=== PATIENT | male | born 1985 | race Caucasian/White ===

== ENCOUNTER → 2020-11-02 10:28 | Outpatient (CLI) | payer OTHER, SELFPAY ==
--- NOTE | 2020-11-02 10:36 | RAD_ITS ---
STUDY: X-RAY - ABDOMEN/PELVIS REASON FOR EXAM: Male, 34 years old. Abdominal pain TECHNIQUE: AP supine and upright views of the abdomen and pelvis. COMPARISON: None. FINDINGS: Normal visualized lung bases. There is an abundance of fecal material throughout the colon. There is no demonstrated free abdominal air. The visualized liver, spleen and kidneys are grossly normal in size and morphology. Evidence of prior mesh repair of a left inguinal hernia. Mild levoscoliosis. RAD/Abd Inc Decub and/or Erect IMPRESSION: Large amount of fecal material is seen in the colon. Mild levoscoliosis. Evidence of prior mesh repair of a left inguinal hernia. Electronically Signed: Allan Trujillo, at 12:41 EST , Service support ,
[2020-11-02 12:25] LABS: Absolute Lymphocyte Count 2.31 X10^3/uL (0.83-4.51); Absolute Neutrophil Count 4.9 X10^3/uL (2.0-7.7); Basophil# 0.05 X10^3/uL; Basophil% 0.6 % (0-1); Eosinophil# 0.15 X10^3/uL; Eosinophils% 1.8 % (0-5); Hematocrit 47.2 % (40-54); Hemoglobin 16.1 g/dL (13.0-16.5); Lymphocyte # 2.31 X10^3/ul (4.0); Lymphocyte % 28.3 % (19-41); Mean Corp Hgb Conc 34.1 g/dL (32-36); Mean Corpuscular Hgb 31.8 pg (27.0-32.0); Mean Corpuscular Volume 93.3 fL (80-94); Mean Platelet Vol. 13.2 fl (6.2-12.0); Monocyte% 8.6 % (0-10); NRBC Flagged by Analyzer 0 % (0-5); Neutrophil # 4.91 X10^3/uL (2.7-7.7); Neutrophil % 60.3 % (47-70); Platelet Count 214 K/mm3 (150-450); RBC Distribution Width CV 13.2 % (11.6-14.6); RBC Distribution Width SD 43.9 fl (35.1-43.9); Red Blood Count 5.06 M/mm3 (4.6-6.2); White Blood Count 8.2 K/mm3 (4.4-11.0)
[2020-11-02 12:38] LABS: ALB/GLOB Ratio 1.1 RATIO (0.9-2.4); AST(SGOT) 29 U/L (15-37); Alanine Aminotransfer ALT/SGPT 70 U/L (16-61); Albumin, Serum 4.1 g/dL (3.2-5.0); Alkaline Phosphatase 74 U/L (45-117); Anion Gap 4 (5-15); BUN 15 mg/dL (7-18); BUN/Creat Ratio 15.8 RATIO (10-20); Calcium,Total 9.2 mg/dL (8.5-10.1); Chloride 107 mmol/L (98-107); Creatinine, Serum 0.95 mg/dL (0.70-1.30); EST Glomerular Filtration Rate 97 mL/min (>60); Est Glom Filt Rate - Afr Amer 118 mL/min (>60); Globulin 3.6 g/dL (2.2-4.2); Glucose 98 mg/dL (74-106); Potassium 4.2 mmol/L (3.5-5.1); Protein, Total 7.7 g/dL (6.4-8.2); Sodium Level 140 mmol/L (136-145)
== END ==
PROVIDERS: PCP Family Medicine; Referring Provider Family Medicine; Visit Provider Family Medicine
DX: R10.9 Unspecified abdominal pain (principal)
CPT/HCPCS: 36415; 74019; 80053; 85025

== ENCOUNTER 2020-12-21 10:32 | Day surgery (SDC) | payer OTHER, SELFPAY ==
[2020-12-14 07:41] VITALS: BMI 28.8
--- NOTE | 2020-12-19 08:38 | EKG12_ITS ---
Test Reason : PRE OP Blood Pressure : / mmHG Vent. Rate : 085 BPM Atrial Rate : 085 BPM P-R Int : 132 ms QRS Dur : 092 ms QT Int : 358 ms P-R-T Axes : 036 061 010 degrees QTc Int : 426 ms Normal sinus rhythm Normal ECG Confirmed by HARSH HELLER, PARISH ([id number]), deputy editor in chief ZULEMA CESPEDES ([id number]) on 12/20/2020 8:57:18 AM Referred By: Parag Balderas Confirmed By:PARISH HOUSE MD
[2020-12-19 09:06] LABS: Hematocrit 47.3 % (40-54); Hemoglobin 15.6 g/dL (13.0-16.5); Mean Corpuscular Hgb 29.9 pg (27.0-32.0); Mean Corpuscular Volume 90.8 fL (80-94); Mean Platelet Vol. 12.5 fl (6.2-12.0); Platelet Count 191 K/mm3 (150-450); RBC Distribution Width SD 42.6 fl (35.1-43.9); Red Blood Count 5.21 M/mm3 (4.6-6.2)
[2020-12-19 09:30] LABS: Anion Gap 2 (5-15); BUN 13 mg/dL (7-18); BUN/Creat Ratio 13.7 RATIO (10-20); Calcium,Total 9.2 mg/dL (8.5-10.1); Chloride 111 mmol/L (98-107); Creatinine, Serum 0.95 mg/dL (0.70-1.30); EST Glomerular Filtration Rate 97 mL/min (>60); Est Glom Filt Rate - Afr Amer 117 mL/min (>60); Glucose 119 mg/dL (74-106); Potassium 3.7 mmol/L (3.5-5.1); Sodium Level 141 mmol/L (136-145)
[2020-12-21] VITALS (9 sets, daily range): BP systolic 128–137; BP diastolic 90–106; PULSE 82–106; RESP 14–18; TEMP 35.8–36.8; O2SAT 90–100; BMI 29.1
--- NOTE | 2020-12-21 | HERN_PTH ---
PATIENT: HENRY LAO LOC: [facility] [place] U#:[id number] AGE/SX: 35/M ROOM: RE12/21/[address]: Dr. Parag Balderas MD : 1985 BED: DIS: 12/21/2020 SPEC #: [id number] RECD: 12/21/20 14:34 STATUS: MICHAEL [place] #: [id number] ALICIA: 12/21/20 00:[address]: Parag Balderas DEPT: SURGICAL PATHOLOGY RECD BY: Terrell Jones ENTERED: 12/22/20 09:17 SP TYPE: Hernia OTHR DR: Dr. Luis Tiwari MD Tissues: HERNIA Procedures: Surgery Specimen Level II HEADER OPERATION: Ventral hernia incisional repair with mesh PRE-OP DIAGNOSIS: Ventral incisional hernia TISSUE SUBMITTED: Hernia sac and contents MICROSCOPIC DIAGNOSIS Hernia sac, herniorrhaphy: Fibrofatty tissue consistent with hernia sac and associated fat necrosis. AM:mehdi 12/25/2020 MICROSCOPIC DESCRIPTION Slides are reviewed. GROSS DESCRIPTION Received in fixative is one container labeled with the patient's name and designated hernia sac and contents. The specimen consists of a piece of soft tissue measuring 3.5 x 2.5 x 1 cm. Sections do not reveal any mass lesion. Slab Polisher sections are submitted in one cassette. / BRINA:mehdi 12/22/20 TC:5 CPT: 40605
--- NOTE | 2020-12-21 10:47 | PCM.HP.BLA ---
Problem List (1) Ventral incisional hernia without obstruction or gangrene Status: Acute History and Physical Date of Admission: 12/21/20 Intake Visit Reasons: Umbilical Hernia Retort Operator Required: No Is patient in pain?: No (umbilicus tenderness) Allergies No Known Allergies Allergy (Verified 12/14/20 07:42) Medications aspirin 325 mg tablet 325 mg PO DAILY PRN 11/22/20 [History Confirmed 11/22/20] ibuprofen 200 mg tablet 200 mg PO Q6H PRN 11/22/20 [History Confirmed 12/14/20] multivitamin 1 tab PO DAILY 11/22/20 [History Confirmed 12/14/20] polyethylene glycol 3350 17 gram/dose oral powder 17 g PO DAILY 12/14/20 [History Confirmed 12/14/20] PFSH Medical History Anxiety (Acute) Constipation (Acute) Umbilical hernia (Acute) Abdominal pain (Acute) Surgical History Hx of left inguinal hernia repair (Acute) Hx of right inguinal hernia repair (Acute) Family History Mother No problems noted. Social History (Updated 12/14/20 @ 08:[address] Parag Balderas MD) Smoking Status: Never smoker alcohol intake: never substance use type: does not use caffeine: Yes what type of physical activity do you participate in: none frequency: does not exercise HPI HPI HPI: HENRY LAO, is a 35 M who presents to the office today for discussion regarding a ventral incisional hernia repair at the umbilicus. The patient is recently seen by Dr. Wade Brown. He had performed a remote laparoscopic bilateral hernia repair. Currently the patient is complaining of some tenderness at the umbilical site. He was diagnosed as having a ventral incisional hernia per Dr. Brown. On further discussion with the patient however the patient is complaining of decreased ability to move his bowels constipation change of bowel habits bloating. He states that he was evaluated by his primary care physician Dr. Luis Hurst. On November 02, 2020 laboratory was obtained demonstrating a normal CBC with differential and normal complete metabolic profile. Plain films of the abdomen showed a large amount of fecal material in the colon. Evidence of prior mesh left inguinal hernia repair. The patient points to kind of the generalized low mid abdomen area. He does suggest that he feels like he had an episode of bowel blockage. He states that the laboratory and x-ray discounted the possibility of diverticulitis. He has no personal or family history of colon polyps or colon cancer. The change of bowel habit though has been acute. 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 [employer] HPI HPI HPI: HENRY LAO, is a 35 M who presents to the office today for ROS General General: Yes weight change; no appetite, fatigue, colon cancer, breast cancer or weakness HEENT HEENT: No difficulty swallowing, eye injury, eye surgery, swollen glands or hoarseness Endo Endocrine: No thyroid disease, diabetes mellitus, thyroid cancer, Hair loss, heat intolerance or cold intolerance Skin Skin: No rash or changing moles Musc Musculoskeletal: No back problems, arthritis, rheumatoid arthritis, gout or joint pain Cardio Cardiovascular: No murmur, pacemaker, heart disease, atrial fibrillation, high blood pressure, heart attack, heart stent, palpitations, shortness of breat with exertion or chest pain Psych Psychiatric: No depression, anxiety or hearing voices Resp Respiratory: No shortness of breath, No sleep apnea, No cough, No COPD, No asthma, No emphysema, No wheezing Gastro Gastrointestinal: Yes abdominal pain, No nausea or vomiting, No diarrhea, Yes constipation, No blood in stool, No acid reflux, No hemorrhoids, No ulcers, No gallbladder problem, No black,tarry stools Bryan Hematologic: No blood thinners, No blood disorders, No bleeding, No anemia, No blood clots Neuro Neurologic: No system reviewed and no additional complaints, except as docu, No as per HPI, No abnormal walking, No abnormal hearing, No abnormal movements, No abnormal speech, No behavioral changes, No burning sensations, No confusion, No seizure-like activity, No unsteadiness, No dizziness, No localized weakness, No frequent falls, No headache(s), No lack of coordination, No loss of vision, No memory loss, No numbness, No other visual disturbances, No radiating pain, No restless legs, No sensory deficit, No fainting, No tingling, No tremor(s), No weakness, No other Exam Const General: cooperative, healthy appearing, comfortable, no acute distress Nutritional Appearance: overweight Orientation: alert, awake HENWA Head: normal to inspection Resp Effort & Inspection: normal respiratory effort Auscultation: clear to auscultation bilaterally Cardio Rate: regular rate Rhythm: regular rhythm Heart Sounds: no murmurs GI Palpation: soft, no hepatosplenomegaly Auscultation: normal bowel sounds Other: Small incisional hernia at the umbilicus left slightly to the left. No erythema. Mild tenderness to deep palpation. Skin General: no rashes or lesions noted Neuro General: alert, awake Extrem General: no calf tenderness Psych Affect: normal affect Assessment & Plan Problems 1. Change in bowel habit R19.4 2. Ventral incisional hernia without obstruction or gangrene K43.2 Plan Abdominal pain mid abdomen and change of bowel habit. Small ventral incisional hernia at the umbilicus related to remote laparoscopic inguinal hernia repair. The ventral incisional hernia certainly is present but I do not believe that this would likely be causing any type of bowel obstruction. The patient did comment several times that he felt that he had an acute change of bowel habit and blockage of his bowels. I had a discussion with him that unfortunately laboratory and plain films cannot completely decipher primary colonic disease. I have offered him a colonoscopy with possible biopsy or polypectomy as indicated. I am not comfortable assuming that his abdominal pain and change of bowel habits is related to the small umbilical ventral incisional hernia. I have discussed ventral incisional herniorrhaphy. Plan a direct approach through the umbilicus likely with the addition of mesh. 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 Patient has had an opportunity to ask and have questions answered. He will consider his options and proceed as noted. We will help expedite his surgical care. I appreciate the opportunity of assisting with his surgical care Copy: Dr. Luis Balderas M.D., F.A.C.S. Coding Level of Care Code Off vis,est,level 3 Diagnoses Change in bowel habit R19.4 Ventral incisional hernia without obstruction or gangrene K43.2 I have re-examined the patient. There are no clinical changes since date of exam. Procedure Criteria Procedure Type: Elective COVID Risk Discussion: The surgeon/proceduralist and patient have discussed in detail the risk of exposure to and/or potential harm posed by the COVID-19 virus with having a surgery/procedure at this time versus the risk of delaying the surgery/procedure. It is not possible to know either the risk of delaying the surgery or procedure or chance of getting an infection with perfect accuracy, but a joint decision was made between the patient and the surgeon/proceduralist to proceed at this time with the scheduled surgery/procedure as indicated on the consent form.
[2020-12-21] MEDS: Lactated Ringers 1,000 ML 15 ML IV ×2 (11:06→14:22)
[2020-12-21] MEDS: Bupivacaine Mpf 0.5% 30 ML VIAL (12:30)
--- NOTE | 2020-12-21 12:36 | DCINST_ITS ---
Discharge Diet: Light diet - advance as tolerated - if you have questions about your diet instructions, please talk to you doctor. Discharge Activity: May Not Drive - for 3-5 days or while taking narcotic pain medicine. May shower in (days): 1 Lifting Restrictions: 10 pounds Call your doctor if your incision/area has: Continuous Slow Oozing, Sudden Increased Bleeding, Increased Pain/ Swelling, Increased Redness, Foul Smelling Discharge Call your doctor if you observe: Fever of 101 or Higher Suture Line Care: Avoid Pulling/Pushing, Avoid Pinching/Bending Additional Dressing/Incision Instructions:: Change or remove dressing in 4 days. Leave steri-strips in place for 1 week. Allergies/Adverse Reactions: Allergies No Known Allergies Allergy (Verified 12/18/20 10:32) Medications to take at Discharge ibuprofen 200 mg tablet 200 mg PO Q6H PRN 11/22/20 multivitamin 1 tab PO DAILY 11/22/20 polyethylene glycol 3350 17 gram/dose oral powder 17 g PO DAILY 12/14/20 Primary Care Physician: Robin Tiwari MD [Primary Care Provider] - Test Results: Test results from this visit will be discussed in further detail at your follow- up appointment, if applicable. Please Follow Up With: Parag Balderas MD - [phone] When: Call for appt. May be phone, virtual, or on-site
[2020-12-21] MEDS: Cefazolin 2 GM in 0.9% Normal Saline 100 ML IV (12:52)
--- NOTE | 2020-12-21 13:34 | OP.PCM_ITS ---
Problem List (1) Ventral incisional hernia without obstruction or gangrene Status: Acute Report of Operation Date of Procedure: 12/21/20 Pre-Operative Diagnosis: Symptomatic ventral incisional hernia at the umbilicus Post-Operative Diagnosis: Same Surgery/Procedure Performed:: Ventral incisional herniorrhaphy with 6.[address] mesh reference #[id number] Lot number [id number]. Expiry date 08/07/2022 Description of Surgical Findings:: And informed consent was obtained. 35-year-old gentleman was taken to the operating place upon the table underwent general endotracheal intubation est hesia. The arm sterilely prepped and draped. Ancef 2 g were given intravenously. A curvilinear incision was made in the inferior portion of the umbilicus. Sharp dissection carried down through the subcutaneous tissue. The incisional hernia related to a previous laparoscopic cholecystectomy was identified. The hernia sac was incised preperitoneal fatty tissue was extracted with the sac electrocautery was used to transect it. Specimen was submitted for analysis. The retrorectus space was then dissected free with electrocautery and sharp and blunt dissection. A 6.4 cm Ventralex mesh was inserted in the retrorectus space. The tails were secured with interrupted 0 Nurolon. The fascia was approximated transversely with interrupted 0 Nurolon with several sutures capturing the mesh for good approximation. The perifascial areas anesthetized with 0.5% Marcaine as was the subdermal tissues. Total 30 cc was used. The umbilical skin was fixed to the fascia with a interrupted suture of 4-0 Monocryl. The skin edges were approximated subdermal stitches of 4-0 Monocryl. Dermabond was applied followed by Telfa and cotton ball and OpSite dressing. Sponge and instrument and needle counts reported to surgically correct. Blood loss minimal. Specimen hernia sac contents. Drains none. Blood loss minimal. The patient was taken to recovery area in satisfactory edition without apparent complication Parag Balderas M.D., F.A.C.S. Type of Anesthesia:: General Anesthesiologist: David Feliciano
[2020-12-21] MEDS: HYDROcodone Bitartrate/Apap 5/325 Tablet PO (15:24)
== END 2020-12-21 16:51 | disposition home or self-care (01) ==
LOC: SDC 10:32 → AC 10:33
PROVIDERS: PCP Family Medicine; Referring Provider Surgery; Visit Provider Surgery
PROC: (CPT 49560; principal; 2020-12-21 12:30)
DX: K43.2 Incisional hernia without obstruction or gangrene (principal); Z20.828 Contact with and (suspected) exposure to other viral communicable diseases; R19.4 Change in bowel habit
CPT/HCPCS: 00832; 49560; 49568; 36415; 80048; 85027; 87426; 88302; 93005; C1781; C9803; J7120; J2405

== ENCOUNTER 2021-07-15 08:31 | Emergency (ER) | payer OTHER, SELFPAY ==
[2021-07-15 08:31] VITALS: BP 154/105; PULSE 92; RESP 16; TEMP 36.4; O2SAT 100; BMI 27.4
--- NOTE | 2021-07-15 08:52 | CT_ITS ---
STUDY: CT ABDOMEN AND PELVIS WITHOUT CONTRAST REASON FOR EXAM: Male, 35 years old. kidney stone RADIATION DOSAGE (If Supplied By Facility): CTDIvol = ( 8.00 ) mGy, DLP = ( 644.97 ) mGycm TECHNIQUE: Transaxial images were obtained from the dome of the diaphragm to the symphysis pubis without oral contrast, and without intravenous contrast. Sagittal and coronal images were reconstructed. Individualized dose optimization techniques were used for this CT. COMPARISON: None. FINDINGS: The visualized lung bases are unremarkable. The visualized portions of the heart are within normal limits. Normal liver. Normal gallbladder and extrahepatic biliary system. Normal spleen. Normal pancreas. Normal bilateral adrenal glands. Bilateral nonobstructing renal stones. No hydronephrosis, ureteral stone, or ureteral dilatation. Normal visualized stomach. Normal small intestine. Normal colon. The appendix is visualized and appears normal. Normal abdominal aorta. Normal inferior vena cava. Normal retroperitoneum. Normal urinary bladder. Normal abdominal wall. Normal osseous structures. CT/Abdomen/Pelvis without Cont IMPRESSION: Bilateral nonobstructing renal stones. Electronically Signed: Jorge Doherty MD at 10:15 EDT Tel , Service support ,
--- NOTE | 2021-07-15 08:52 | US_ITS ---
STUDY: SCROTUM ULTRASOUND REASON FOR EXAM: Male, 35 years old. left testicular pain TECHNIQUE: Ultrasound evaluation of the scrotum was performed with color Doppler and static mock-scale imaging. COMPARISON: None. FINDINGS: RIGHT TESTICLE INTRATESTICULAR: There is a normal size of the right testicle. The right testicle measures 4.3 x 2.9 x 2.6 cm. There is a homogenous echotexture. There is normal arterial and normal venous vascularity. There is no demonstrated right testicular mass or cyst. EXTRATESTICULAR: The epididymis is normal in size. The epididymis head measures 0.7 x 1.1 x 0.9 cm. There is normal vascularity of the epididymis. There is no demonstrated epididymal cystic structure. There is no demonstrated hydrocele. There is no demonstrated varicocele. There is no demonstrated extratesticular mass or cyst. LEFT TESTICLE INTRATESTICULAR: There is a normal size of the left testicle. The left testicle measures 4.2 x 2.8 x 2.1 cm. There is a homogenous echotexture. There is normal arterial and normal venous vascularity. There is no demonstrated left testicular mass or cyst. EXTRATESTICULAR: The epididymis is normal in size. The epididymis head measures 0.8 x 1.1 x 0.8 cm. There is normal vascularity of the epididymis. There is no demonstrated epididymal cystic structure. There is no demonstrated hydrocele. There are prominent extratesticular veins consistent with a varicocele. There is no demonstrated extratesticular mass or cyst. US/Testicular with Arterial Flow IMPRESSION: Normal bilateral testicles. Electronically Signed: Jorge Doherty MD at 10:27 EDT Tel , Service support ,
--- NOTE | 2021-07-15 08:53 | EX.ED.GUMALE ---
HPI History of Present Illness Chief Complaint: Abd Pain Informant: patient Narrative Narrative: 35-year-old male presents with 2 days of left testicular discomfort. He notes that if he is at rest it does not seem to bother him but if he moves a certain position or touches his testicle in a certain way it is a dull aching sensation. He has been noting some intermittent left flank discomfort as well. He notes his urine to be cloudy. No fevers. He has a history of ventral and bilateral inguinal hernia repair. He denies any rectal pain. No burning with urination or urinary frequency. No trauma. No drainage from the meatus. [facility] Medical History Abdominal pain Anxiety Black tarry stools Change in bowel habit Constipation Dark stools Seasonal allergies Umbilical hernia Ventral incisional hernia without obstruction or gangrene Allergy/AdvReac Type Severity Reaction Status Date / Time No Known Allergies Allergy Verified 07/15/21 08:33 Family History Mother No problems noted. Surgical History History of ventral hernia repair (12/21/20) Hx of left inguinal hernia repair (~2006) Hx of right inguinal hernia repair (~2001) Hx of wisdom tooth extraction Social History Smoking Status: Never smoker alcohol intake: never substance use type: does not use caffeine: Yes what type of physical activity do you participate in: none frequency: does not exercise ROS ROS ED Constitutional Constitutional ED: Denies chills or weight loss Eyes Eyes: Denies change in vision or diplopia ENT ENT ED: Denies ear pain, rhinorrhea or sore throat Cardiovascular Cardiovascular: Denies chest pain, orthopnea, palpitations or racing heartbeat Respiratory/Chest Respiratory/Chest: Denies cough, dyspnea or orthopnea Gastrointestinal Gastrointestinal: Denies abdominal pain, diarrhea, nausea or vomiting Genitourinary Genitourinary ED: Reports other Details: Left testicular pain ; Denies dysuria, hematuria or urinary frequency Musculoskeletal Musculoskeletal: Reports back pain; Denies arthralgias or myalgias Integumentary Denies abscess or rash Neurologic Neurologic: Denies headache(s) or weakness Psychiatric Psychiatric: Denies anxiety, depression, suicidal ideation or suicidal thoughts Endocrine Endocrinology: Denies polydipsia, polyphagia or polyuria Allergic/Immunologic Allergic/Immunologic ED: Denies mouth swelling, tongue swelling or urticaria EXAM Physical Exam Const Vital Signs: 07/15/21 08:31 Temperature 97.6 F L Temperature Source Temporal Pulse Rate 92 Respiratory Rate 16 Blood Pressure 154/105 H Blood Pressure Mean 121 Pulse Ox 100 Oxygen Delivery Method Room Air Positive well nourished and well developed General Appearance ED: well developed HEENT Reports normocephalic, head/scalp atraumatic and moist mucous membranes Eyes PERRL and EOMs intact bilaterally Neck no lymphadenopathy, supple and no JVD Resp normal respiratory effort and clear to auscultation bilaterally Cardio regular rate, regular rhythm and no murmurs GI normal to inspection, nondistended, normoactive bowel sounds and non-tender Palpation: soft Narrative: The testicles appear to have a normal lie. There is some mild discomfort with palpation of the epididymis and of the testicle. No palpable hernias. No erythema or swelling noted Back/Spine no CVA tenderness and normal ROM Extremity normal to inspection General Extremety ED: Negative for edema General Extremity: Negative for edema Neuro oriented x3 and CN's II-XII intact bilaterally Sensorium / Orientation: alert Motor Exam: strength 5/5 throughout Psych mental status grossly normal Mood & Affect: Negative for depressed or tearful Skin no rashes or lesions noted and no wounds MDM MDM MDM Narrative Medical decision making narrative: Urinalysis is normal. CT of the abdomen pelvis demonstrates bilateral nonobstructing renal stones. Testicular ultrasound was normal. At this point I do not see an obvious cause for the patient's discomfort. Would recommend home care and observation. Return if worsening or concerns Lab Data Attestation: I reviewed the patient's lab results. Labs: Laboratory Results - last 24 hr 07/15/21 08:48 Urine Color Yellow Urine Clarity Clear Urine pH 6.0 Ur Specific [place] 1.010 Urine Protein 15 H Urine Glucose (UA) Normal Urine Ketones Negative Urine Occult Blood Negative Urine Nitrite Negative Urine Bilirubin Negative Urine Urobilinogen Normal Ur Leukocyte Esterase Negative Urine RBC 0 SEEN Urine WBC 0 SEEN Ur Squamous Epith Cells 0 SEEN Urine Bacteria 0 SEEN Urine Mucus 0 SEEN Radiography Diagnostic Testing: Radiology Impression Abdomen/Pelvis CT 07/15/21 08:52 IMPRESSION: Bilateral nonobstructing renal stones. Electronically Signed: Jorge Doherty MD at 10:15 EDT Tel , Service support , Testicular Ultrasound 07/15/21 08:52 IMPRESSION: Normal bilateral testicles. Electronically Signed: Jorge Doherty MD at 10:27 EDT Tel , Service support , Discharge Plan Triage Chief Complaint: Abd Pain ED Provider: Romulo Navarrete Dx/Rx/DC Orders Clinical Impression: Left testicular pain, Acute left flank pain Instructions: ED Testicular Pain, Unclear Cause Primary Care Provider: Robin Tiwari Referrals: Robin Tiwari MD [Primary Care Provider] - 1 Week if not improving Disposition Disposition: Home, Self Care
[2021-07-15 08:59] LABS: Bacteria 0 SEEN /hpf (None Seen); Mucous, Urine 0 SEEN /hpf (<or=2+); Red Blood Cells-Urine 0 SEEN /hpf (0-5); Squamous Epithelial Cells - UA 0 SEEN /hpf (0-5); White Blood Cells 0 SEEN /hpf (0-5)
[2021-07-15 09:01] LABS: Color, Urine Yellow (Yellow); Glucose, Dipstick Normal (Normal); Ketone-Dipstick Negative (Negative); Leukocyte Esterase-Dipstick Negative /ul (Negative); Nitrite-Dipstick Negative (Negative); Occult Blood-Urine Negative /ul (Negative); Protein-Dipstick 15 mg/dl (Negative); Urine Bilirubin Dipstick Negative (Negative); Urine Clarity Clear (Clear); Urine Urobilinogen Normal (Normal)
[2021-07-15 10:51] VITALS: PULSE 69; RESP 16; O2SAT 99
== END 2021-07-15 10:52 | disposition home or self-care (01) ==
PROVIDERS: Emergency Provider Emergency Medicine; PCP Family Medicine
DX: N50.812 Left testicular pain (principal); R10.9 Unspecified abdominal pain
CPT/HCPCS: 74176; 76870; 81001; 93976; 99282

== ENCOUNTER 2021-07-20 06:17 | Day surgery (SDC) | payer OTHER, SELFPAY ==
[2021-06-14 05:47] VITALS: BMI 30.1
[2021-07-20] VITALS (7 sets, daily range): BP systolic 120–135; BP diastolic 71–91; PULSE 62–95; RESP 16; TEMP 36.2–36.5; O2SAT 97–98; BMI 28.6
--- NOTE | 2021-07-20 | IMM_PTH ---
PATIENT: HENRY LAO LOC: EN U#:[id number] AGE/SX: 35/M ROOM: RE07/20/[address]: Dr. Parag Balderas MD : 1985 BED: DIS: 07/20/2021 SPEC #: [id number] RECD: 07/20/21 11:33 STATUS: MICHAEL REQ #: [id number] ALICIA: 07/20/21 00:[address]: Parag Balderas DEPT: IMMUNOHISTOCHEMISTRY RECD BY: Elie Quintanilla ENTERED: 07/20/21 11:33 SP TYPE: IMMUNO OTHR DR: Dr. Luis Tiwari MD Tissues: Stomach, NOS Procedures: H Pylori (initial) PHYSICIAN & INSTITUTION [place] [id number] SPECIMEN INFORMATION: Tissue Source: B. Antrum biopsy Clinical Info: Black tarry stools, change in bowel habits Specimen Number:[id number] CPT code: 34457 METHODOLOGY: Deparaffinized sections of prefer/formalin-fixed tissue or PAP/DQ stained slides are incubated with monoclonal/polyclonal antibodies/oligonucleotide probes. Localization is made via biotin free immunoperoxidase method. Appropriate controls are performed and reacted as expected. Results on target cell population are indicated in the following table: RESULTS: ANTIBODY / CLONE RESULT Block B H Pylori (polyclonal) negative These tests were developed and their performance characteristics determined by [facility]. They may not have been cleared or approved by the U.[place]. Food and Drug Administration. The FDA has determined that such clearance or approval is not necessary. INTERPRETATION: B. Antrum biopsy: Negative for Helicobacter pylori organisms. SJ:mehdi 07/23/2021
--- NOTE | 2021-07-20 06:24 | PCM.HP.BLA ---
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 Is patient in pain?: No (not currently- lower abdominal pain on and off) Allergies No Known Allergies Allergy (Verified 06/14/21 08:03) Medications ibuprofen 200 mg tablet 200 mg PO Q6H PRN 11/22/20 [History Confirmed 06/14/21] multivitamin 1 tab PO DAILY 11/22/20 [History Confirmed 06/14/21] loratadine 10 mg capsule 10 mg PO DAILY 06/14/21 [History Confirmed 06/14/21] pseudoephed 30 mg-DM 10 mg-guaifen 100 mg-acetaminophen 250 mg capsule 2 cap PO ONCE 06/14/21 [History Confirmed 06/14/21] simethicone 62.5 mg oral strips 1 strip PO QD-BID PRN 06/14/21 [History Confirmed 06/14/21] PFSH Medical History Abdominal pain Anxiety Black tarry stools Change in bowel habit Constipation Dark stools Seasonal allergies Umbilical hernia Ventral incisional hernia without obstruction or gangrene Surgical History History of ventral hernia repair (12/21/20) Hx of left inguinal hernia repair (~2006) Hx of right inguinal hernia repair (~2001) Hx of wisdom tooth extraction Family History Mother No problems noted. Social History Smoking Status: Never smoker alcohol intake: never substance use type: does not use caffeine: Yes what type of physical activity do you participate in: none frequency: does not exercise HPI HPI HPI: HENRY LAO, is a 35 M who presents to the office today for surgical consultation regarding abdominal pain and change in bowel habits. On December 21, 2020 I performed a ventral incisional herniorrhaphy with a 6.4 cm Ventralex mesh. This simply related to a previous laparoscopic cholecystectomy. The mesh was placed into the retrorectus space. Preoperatively the patient had concerns regarding her change of bowel habits bloating and constipation. Plain abdominal films taken October 2020 demonstrated a large amount of fecal material in the colon. There is evidence of a prior left groin hernia repair. 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 I did discuss with him preoperatively pursuing a colonoscopy. At that time he preferred proceeding on with the ventral incisional herniorrhaphy. It was hoped that by repairing his ventral incisional hernia that some of his abdominal symptoms would improve and may have but he is still having inconsistent bowel movements. Sometimes 3 bowel movements a day sometimes none. It is of note that he also is describing some intermittent very dark stools. He does take ibuprofen up to 2 tablets/day. He has been on MiraLAX previously. That did not seem to completely settle his symptoms. He has recently been trying Gas-X with some improvement in his discomfort. He believes that his ventral incisional herniorrhaphy proceeded very well. He has absolutely no discomfort at that site ROS General General: No weight change, appetite, fatigue, colon cancer, breast cancer or weakness HEENT HEENT: No difficulty swallowing, eye injury, eye surgery, swollen glands or hoarseness Endo Endocrine: No thyroid disease, diabetes mellitus, thyroid cancer, Hair loss, heat intolerance or cold intolerance Skin Skin: No rash or changing moles Musc Musculoskeletal: No back problems, arthritis, rheumatoid arthritis, gout or joint pain Cardio Cardiovascular: No murmur, pacemaker, heart disease, atrial fibrillation, high blood pressure, heart attack, heart stent, palpitations, shortness of breat with exertion or chest pain Psych Psychiatric: No depression, anxiety or hearing voices Resp Respiratory: No shortness of breath, No sleep apnea, No cough, No COPD, No asthma, No emphysema and No wheezing Gastro Gastrointestinal: Yes abdominal pain, No nausea or vomiting, Yes diarrhea, Yes constipation, No blood in stool, No acid reflux, No hemorrhoids, No ulcers, No gallbladder problem and Yes black,tarry stools Bryan Hematologic: No blood thinners, No blood disorders, No bleeding, No anemia and No blood clots Neuro Neurologic: No weakness Exam Const General: cooperative, healthy appearing, comfortable and no acute distress Nutritional Appearance: overweight Orientation: alert and awake [facility] Head: normal to inspection Eyes General: appearance normal, both eyes and all related structures Neck Neck: normal visual inspection Resp Effort & Inspection: normal respiratory effort Auscultation: clear to auscultation bilaterally Cardio Rate: regular rate Rhythm: regular rhythm GI Palpation: soft and no hepatosplenomegaly Auscultation: normal bowel sounds Other: Very nicely healed curvilinear incision at the inferior portion of the umbilicus. Repair is solid and intact Musc Cervical Spine: normal cervical lordosis Skin General: no rashes or lesions noted Neuro Cognition: normal cognition Extrem General: no calf tenderness Psych Appearance: grossly normal COVID (Procedure Consent) Procedure Criteria Procedure Criteria: Yes Elective The surgeon/proceduralist and patient have discussed in detail the risk of exposure to and/or potential harm posed by the COVID-19 virus with having a surgery/procedure at this time versus the risk of delaying the surgery/procedure. It is not possible to know either the risk of delaying the surgery or procedure or chance of getting an infection with perfect accuracy, but a joint decision was made between the patient and the surgeon/proceduralist to proceed at this time with the scheduled surgery/procedure as indicated on the consent form. Assessment and Plan Assessment and Plan (1) Black tarry stools: Status: Acute (2) Change in bowel habit: Status: Acute Plan - Dr. Parag Balderas MD: Patient has done well with his ventral incisional herniorrhaphy at the umbilicus. He still is having evaluate complexity of abdominal complaints including generalized abdominal pain and intermittent dark-colored stools and inconsistent bowel movements frequently very loose and multiple per day. I propose for him a esophagogastroduodenoscopy possible biopsy colonoscopy possible biopsy or polypectomy as indicated. Careful evaluation for determination of abdominal pain will be pursued and biopsies will be taken appropriate. Inspection for possible source of diarrhea as well. He has had an opportunity ask no questions answered. We will schedule procedure at his discretion. Copy: Dr. Luis Balderas M.D., F.A.C.S. The patient has had an ER visit on July 15 with complaint of left flank pain and left testicle pain. No definitive etiology was identified by the emergency room staff. Parag Balderas M.D., F.A.C.S.
[2021-07-20] MEDS: Lactated Ringers 1,000 ML 100 ML IV (06:46)
--- NOTE | 2021-07-20 07:30 | EGD_PTH ---
PATIENT: HENRY LAO LOC: EN U#:[id number] AGE/SX: 35/M ROOM: RE07/20/[address]: Dr. Parag Balderas MD : 1985 BED: DIS: 07/20/2021 SPEC #: [id number] RECD: 07/20/21 10:59 STATUS: MICHAEL REThiago #: [id number] ALICIA: 07/20/21 07:[address]: Parag Balderas DEPT: SURGICAL PATHOLOGY RECD BY: Cari Quinn ENTERED: 07/20/21 11:29 SP TYPE: EGD BIOPSY OT DR: Dr. Luis Tiwari MD Tissues: A - Duodenum, NOS B - Gastric mucous membrane C - Esophagus, NOS D - COLON BIOPSY Procedures: Surgery Specimen Level IV HEADER OPERATION: Colonoscopy, EGD ([facility] [place]) PRE-OP DIAGNOSIS: Black tarry stools, change in bowel habits TISSUE SUBMITTED: A. Duodenum biopsy, B. Antrum biopsy for histo and H. pylori, C. Distal esophagus, D. Random colonic biopsies MICROSCOPIC DIAGNOSIS A. Duodenum, biopsy: A fragment of duodenal mucosa with Ann gland hyperplasia. B. Antrum, biopsy: Mild gastritis. See microscopic description and comment. C. Distal esophagus, biopsy: Fragments of squamous mucosa with mild chronic inflammation. D. Colon, random biopsy: Fragments of colonic mucosa, no pathologic diagnosis. SJ:mehdi 07/23/2021 COMMENT B. The results of immunohistochemistry for Helicobacter pylori will be reported separately ([id number]). MICROSCOPIC DESCRIPTION Slides are reviewed. B. The specimen shows fragments of gastric mucosa with chronic inflammatory cell infiltrates in the lamina propria consisting of lymphocytes and plasma cells, consistent with mild chronic gastritis. GROSS DESCRIPTION A - Received in fixative is one container labeled with the patient's name and designated duodenum biopsy. The specimen consists of one irregular fragment of light jacobson soft tissue that measures 0.3 x 0.2 x 0.1 cm. The specimen is totally submitted in one cassette. B - Received in fixative is one container labeled with the patient's name and designated antrum biopsy. The specimen consists of one irregular fragment of light jacobson soft tissue that measures 0.3 x 0.2 x 0.1 cm. The specimen is totally submitted in one cassette. C - Received in fixative is one container labeled with the patient's name and designated distal esophagus biopsy. The specimen consists of multiple irregular fragments of light jacobson soft tissue that in aggregate measure 0.5 x 0.5 x <0.1 cm. The specimen is totally submitted in one cassette. D - Received in fixative is one container labeled with the patient's name and designated random colon biopsy. The specimen consists of multiple irregular fragments of light jacobson soft tissue that in aggregate measure 1 x 1 x 0.2 cm. The specimen is totally submitted in one cassette. / AM:mehdi 07/20/21 TC:3 CPT: 77369 x4
--- NOTE | 2021-07-20 08:03 | OP.CCLET_ITS ---
07/20/2021 Robin Tiwari [address] [place] [address] Re : Upper GI endoscopy procedure for Jonathan Head Dear Dr. Tiawri This procedure was performed on Tuesday, July 20, 2021. My impressions and recommendations are as follows: Impressions : - Small hiatal hernia. - Z-line variable, 40 cm from the incisors. Biopsied. - Erythematous mucosa in the antrum. Biopsied. - Normal examined duodenum. Biopsied. Recommendations : - Discharge patient to home. - Resume previous diet. - Continue present medications. - Telephone my office for pathology results in 1 week. Findings do not correlate with significant abdominal pain. My findings are described in the full procedure note, which is enclosed. If I can be of further assistance, please feel free to contact me at Doctor phone number(s): Work: . Sincerely, Parag Balderas MD 07/20/2021 8:02:22 AM This report has been signed electronically.
--- NOTE | 2021-07-20 08:03 | OP.EGD_ITS ---
Patient Name: Jonathan Ingram Procedure Date: 07/20/2021 7:31 AM Date of : 1985 Age: 35 Procedure: Upper GI endoscopy Indications: Abdominal pain in the left upper quadrant Providers: Parag Balderas MD Referring MD: Robin Tiwari Medicines: See the Anesthesia note for documentation of the administered medications Complications: No immediate complications. Procedure: Pre-Anesthesia Assessment: - Prior to the procedure, a History and Physical was performed, and patient medications and allergies were reviewed. The patient's tolerance of previous anesthesia was also reviewed. The risks and benefits of the procedure and the sedation options and risks were discussed with the patient. All questions were answered, and informed consent was obtained. Prior Anticoagulants: The patient has taken no previous anticoagulant or antiplatelet agents. ASA Grade Assessment: II - A patient with mild systemic disease. After reviewing the risks and benefits, the patient was deemed in satisfactory condition to undergo the procedure. After obtaining informed consent, the endoscope was passed under direct vision. Throughout the procedure, the patient's blood pressure, pulse, and oxygen saturations were monitored continuously. The gastroscope was introduced through the mouth, and advanced to the second part of duodenum. The upper GI endoscopy was accomplished without difficulty. The patient tolerated the procedure well. Scope In: 7:38:09 AM Scope Out: 7:42:58 AM Total Procedure Duration Time 0 hours 4 minutes 49 seconds Findings: A small hiatal hernia was present. The Z-line was variable and was found 40 cm from the incisors. Biopsies were taken with a cold forceps for histology. Diffuse mildly erythematous mucosa without bleeding was found in the gastric antrum. Biopsies were taken with a cold forceps for histology. The examined duodenum was normal. Biopsies were taken with a cold forceps for histology. Impression: - Small hiatal hernia. - Z-line variable, 40 cm from the incisors. Biopsied. - Erythematous mucosa in the antrum. Biopsied. - Normal examined duodenum. Biopsied. Recommendation: - Discharge patient to home. - Resume previous diet. - Continue present medications. - Telephone my office for pathology results in 1 week. Findings do not correlate with significant abdominal pain. Procedure Code(s): --- Professional --- 08869, Esophagogastroduodenoscopy, flexible, transoral; with biopsy, single or multiple Diagnosis Code(s): --- Professional --- K44.9, Diaphragmatic hernia without obstruction or gangrene K22.8, Other specified diseases of esophagus K31.89, Other diseases of stomach and duodenum R10.12, Left upper quadrant pain CPT copyright 2017 [employer]. All rights reserved. The codes documented in this report are preliminary and upon demonstrator sales review may be revised to meet current compliance requirements. Parag Balderas MD 07/20/2021 8:02:22 AM This report has been signed electronically. Number of Addenda: 0 Note Initiated On: 07/20/2021 7:31 AM
--- NOTE | 2021-07-20 08:06 | OP.COLON_ITS ---
Patient Name: Jonathan Ingram Procedure Date: 07/20/2021 7:43 AM Date of : 1985 Age: 35 Procedure: Colonoscopy Indications: Abdominal pain in the left upper quadrant Providers: Parag Balderas MD Referring MD: Robin Tiwari Medicines: See the Anesthesia note for documentation of the administered medications Patient Profile: Last Colonoscopy: none. The patient's first colonoscopy is today. Complications: No immediate complications. Procedure: Pre-Anesthesia Assessment: - Prior to the procedure, a History and Physical was performed, and patient medications and allergies were reviewed. The patient's tolerance of previous anesthesia was also reviewed. The risks and benefits of the procedure and the sedation options and risks were discussed with the patient. All questions were answered, and informed consent was obtained. Prior Anticoagulants: The patient has taken no previous anticoagulant or antiplatelet agents. ASA Grade Assessment: II - A patient with mild systemic disease. After reviewing the risks and benefits, the patient was deemed in satisfactory condition to undergo the procedure. After I obtained informed consent, the scope was passed under direct vision. Throughout the procedure, the patient's blood pressure, pulse, and oxygen saturations were monitored continuously. The adult colonoscope was introduced through the anus and advanced to the cecum, identified by appendiceal orifice and ileocecal valve. The colonoscopy was performed without difficulty. The patient tolerated the procedure well. The quality of the bowel preparation was good. The ileocecal valve and the appendiceal orifice were photographed. Scope In: 7:46:12 AM Scope Withdrawal Time 0 hours 7 minutes 30 seconds Scope Out: 7:57:43 AM Total Procedure Duration Time 0 hours 11 minutes 31 seconds Findings: Hemorrhoids were found on perianal exam. slightly enlarged. No mass Scattered diverticula were found in the sigmoid colon. Biopsies for histology were taken with a cold forceps from the entire colon for evaluation of microscopic colitis. The exam was otherwise without abnormality. Impression: - Hemorrhoids found on perianal exam. - Diverticulosis in the sigmoid colon. - The examination was otherwise normal. - Biopsies were taken with a cold forceps from the entire colon for evaluation of microscopic colitis. Recommendation: - Discharge patient to home. - Resume previous diet. - Continue present medications. - Repeat colonoscopy at age 52. - Telephone my office for pathology results in 1 week. Procedure Code(s): --- Professional --- 32973, Colonoscopy, flexible; with biopsy, single or multiple Diagnosis Code(s): --- Professional --- K64.9, Unspecified hemorrhoids R10.12, Left upper quadrant pain K57.30, Diverticulosis of large intestine without perforation or abscess without bleeding CPT copyright 2017 [employer]. All rights reserved. The codes documented in this report are preliminary and upon blockers skiver review may be revised to meet current compliance requirements. Parag Balderas MD 07/20/2021 8:06:13 AM This report has been signed electronically. Number of Addenda: 0 Note Initiated On: 07/20/2021 7:43 AM
--- NOTE | 2021-07-20 08:07 | OP.CCLET_ITS ---
07/20/2021 Robin Tiwari [address] [place] [address] Re : Colonoscopy procedure for Jonathan Head Dear Dr. Tiwari This procedure was performed on Tuesday, July 20, 2021. My impressions and recommendations are as follows: Impressions : - Hemorrhoids found on perianal exam. - Diverticulosis in the sigmoid colon. - The examination was otherwise normal. - Biopsies were taken with a cold forceps from the entire colon for evaluation of microscopic colitis. Recommendations : - Discharge patient to home. - Resume previous diet. - Continue present medications. - Repeat colonoscopy at age 52. - Telephone my office for pathology results in 1 week. My findings are described in the full procedure note, which is enclosed. If I can be of further assistance, please feel free to contact me at Doctor phone number(s): Work: . Sincerely, Parag Balderas MD 07/20/2021 8:06:13 AM This report has been signed electronically.
== END 2021-07-20 08:40 | disposition home or self-care (01) ==
LOC: EN 06:17 → AC 06:18
PROVIDERS: PCP Family Medicine; Referring Provider Family Medicine; Visit Provider Surgery
PROC: 0DJD8ZZ Inspection of Lower Intestinal Tract, Via Natural or Artificial Opening Endoscopic (ICD-10-PCS; CPT 45378; principal; 2021-07-20 07:25)
DX: K57.30 Diverticulosis of large intestine without perforation or abscess without bleeding (principal); K52.9 Noninfective gastroenteritis and colitis, unspecified; K64.9 Unspecified hemorrhoids; K44.9 Diaphragmatic hernia without obstruction or gangrene; K29.70 Gastritis, unspecified, without bleeding; K31.89 Other diseases of stomach and duodenum; F41.9 Anxiety disorder, unspecified; Z79.899 Other long term (current) drug therapy
CPT/HCPCS: 43239; 45380; 87426; 88305; 88342; C9803; J7120

== ENCOUNTER 2021-10-05 04:32 | Emergency (ER) | payer OTHER, SELFPAY ==
[2021-10-05 04:34] VITALS: BP 173/100; PULSE 89; RESP 18; TEMP 36.6; O2SAT 100; BMI 28.8
--- NOTE | 2021-10-05 04:44 | CT_ITS ---
STUDY: CT ABDOMEN AND PELVIS WITHOUT CONTRAST REASON FOR EXAM: Male, 35 years old. Flank pain RADIATION DOSAGE (If Supplied By Facility): CTDIvol = ( 8.43 ) mGy, DLP = ( 488.66 ) mGycm TECHNIQUE: Transaxial images were obtained from the dome of the diaphragm to the symphysis pubis without oral contrast, and without intravenous contrast. Sagittal and coronal images were reconstructed. Individualized dose optimization techniques were used for this CT. COMPARISON: None. FINDINGS: The visualized lung bases are unremarkable. The visualized portions of the heart are within normal limits. Normal liver. Normal gallbladder and extrahepatic biliary system. Normal spleen. Normal pancreas. Normal bilateral adrenal glands. Bilateral kidney stones, the largest measures 4 mm is in the left kidney at the UPJ with resultant moderate left hydronephrosis. Normal visualized stomach. Normal small intestine. Normal colon. The appendix is visualized and appears normal. Normal abdominal aorta. Normal inferior vena cava. Normal retroperitoneum. Normal urinary bladder. Normal abdominal wall. Normal osseous structures. CT/Abdomen/Pelvis without Cont IMPRESSION: Bilateral kidney stones, the largest measures 4 mm is in the left kidney at the UPJ with resultant moderate left hydronephrosis. Electronically Signed: Del Maldonado MD at 6:20 EST Tel , Service support ,
--- NOTE | 2021-10-05 04:50 | EX.ED.DYSGE1 ---
HPI History of Present Illness Chief Complaint: Flank Pain Informant: patient Onset/Context/Timing Onset: Today and Hours (2-3) Context: Sudden Onset Timing: Waxes and wanes Quality: Sharp Location: Left flank Current Severity: Severe Maximum Severity: Severe Worsened by: Nothing Relieved by: Heating pad Narrative Narrative: Patient presents with left flank pain that began today. Patient states the pain woke him up approximately 2 to 3 hours prior to arrival. Patient states the pain is sharp. Patient states pain is similar to prior kidney stones. Patient states the pain waxes and wanes. Patient states that heating pad seem to help with his pain. Patient denies any dysuria or hematuria. Patient admits to some nausea but denies any vomiting. Patient denies any fevers or chills. PFSH PFSH Medical History Abdominal pain Anxiety Black tarry stools Change in bowel habit Constipation Dark stools Kidney stone Non-smoker Seasonal allergies Umbilical hernia Ventral incisional hernia without obstruction or gangrene Home Medications acetaminophen 325 mg PO Q4H PRN 07/18/21 [History Last Taken Unknown] multivitamin 1 tab PO DAILY 07/18/21 [History Last Taken Unknown] oxycodone-acetaminophen 1 tab PO Q6H PRN PRN 3 Days #12 tablet 10/05/21 [Rx Last Taken Unknown] Allergy/AdvReac Type Severity Reaction Status Date / Time No Known Allergies Allergy Verified 10/05/21 04:43 Family History Mother No problems noted. Surgical History History of ventral hernia repair (12/21/20) Hx of left inguinal hernia repair (~2006) Hx of right inguinal hernia repair (~2001) Hx of wisdom tooth extraction Social History Smoking Status: Never smoker alcohol intake: never substance use type: does not use caffeine: Yes what type of physical activity do you participate in: none frequency: does not exercise ROS ROS ED Constitutional Constitutional ED: Denies chills or fever(s) Eyes Eyes: Denies blurry vision or change in vision ENT ENT ED: Denies rhinorrhea or sore throat Cardiovascular Cardiovascular: Denies chest pain or palpitations Respiratory/Chest Respiratory/Chest: Denies cough or dyspnea Gastrointestinal Gastrointestinal: Reports nausea; Denies vomiting Genitourinary Genitourinary ED: Denies dysuria or hematuria Musculoskeletal Musculoskeletal: Reports back pain; Denies neck pain Integumentary Denies abscess or rash Neurologic Neurologic: Denies headache(s) or weakness Allergic/Immunologic Allergic/Immunologic ED: Denies mouth swelling or urticaria EXAM Physical Exam Const Vital Signs: 10/05/21 04:34 Temperature 97.9 F Temperature Source Temporal Pulse Rate 89 Respiratory Rate 18 Blood Pressure 173/100 H Blood Pressure Mean 124 Pulse Ox 100 Oxygen Delivery Method Room Air Positive well nourished and well developed General Appearance ED: well developed HEENT Reports moist mucous membranes Neck supple and no JVD Resp normal respiratory effort and clear to auscultation bilaterally Cardio regular rate, regular rhythm and no murmurs GI normal to inspection, nondistended, normoactive bowel sounds and non-tender Palpation: soft Back/Spine General Back: CVA tenderness left Extremity normal to inspection General Extremety ED: Negative for edema or tenderness General Extremity: Negative for edema Neuro oriented x3, CN's II-XII intact bilaterally and no sensory deficits noted Sensorium / Orientation: alert Motor Exam: strength 5/5 throughout Psych mental status grossly normal Skin no rashes or lesions noted MDM MDM MDM Narrative Medical decision making narrative: Patient was given IV fluids and morphine. CBC shows a mild leukocytosis of 13.2. Comprehensive metabolic profile was essentially within normal limits. CT scan of the abdomen and pelvis was obtained. There is a 4 mm calculus at the left proximal ureter near the UPJ. There is moderate hydronephrosis. There is no other acute abnormality. This was interpreted by the radiologist and reviewed by myself. Urinalysis does not show any evidence of urinary tract infection. There are 50-100 red blood cells and occult blood of 250. Patient was advised of his findings. Patient was given a prescription for Percocet. Patient was instructed to follow-up with his primary care physician in 3 to 5 days. Patient was also given referral for urology. Patient understood and was agreeable with the plan. All questions were answered. Lab Data Attestation: I reviewed the patient's lab results. Labs: Laboratory Results - last 24 hr 10/05/21 10/05/2121 04:45 04:45 06:16 WBC 13.2 H RBC 5.01 Hgb 15.1 Hct 44.6 MCV 89.0 MCH 30.1 MCHC 33.9 RDW Std Deviation 42.8 RDW Coeff of Damien 13.2 Plt Count 231 MPV 12.5 H Immature Gran % (Auto) 0.300 Neut % (Auto) 62.4 Lymph % (Auto) 26.1 Pettis % (Auto) 9.1 Eos % (Auto) 1.6 Baso % (Auto) 0.5 Absolute Neuts (auto) 8.2 H Absolute Lymphs (auto) 3.44 Nucleated RBC % 0 Sodium 140 Potassium 3.8 Chloride 107 Carbon Dioxide 27.0 Anion Gap 6 BUN 18 Creatinine 1.07 Estim Creat Clear Calc 95.00 Est GFR (MDRD) Af Amer 102 Est GFR (MDRD) Non-Af 84 BUN/Creatinine Ratio 16.8 Glucose 177 H Calcium 9.2 Total Bilirubin 0.50 AST 20 ALT 42 Alkaline Phosphatase 70 Total Protein 7.5 Albumin 3.9 Globulin 3.6 Albumin/Globulin Ratio 1.1 Urine Color Yellow Urine Clarity Sl. Cloudy Urine pH 7.0 Ur Specific [place] 1.010 Urine Protein 30 H Urine Glucose (UA) Normal Urine Ketones Negative Urine Occult Blood 250 H Urine Nitrite Negative Urine Bilirubin Negative Urine Urobilinogen Normal Ur Leukocyte Esterase Negative Urine RBC 50-100 SEEN Urine WBC 0 SEEN Ur Squamous Epith Cells 0 SEEN Urine Bacteria RARE Urine Mucus RARE Radiography Diagnostic Testing: Clinical Impression(s) from Imaging Studies Abdomen/Pelvis CT 10/05/21 04:44 IMPRESSION: Bilateral kidney stones, the largest measures 4 mm is in the left kidney at the UPJ with resultant moderate left hydronephrosis. Electronically Signed: Del Maldonado MD at 6:20 EST Tel , Service support , Discharge Plan Triage Chief Complaint: Flank Pain ED Provider: Thomas Bautista Dx/Rx/DC Orders Clinical Impression: Calculus of proximal left ureter Instructions: ED Kidney Stone w/ Colic Prescriptions: New oxycodone-acetaminophen [oxycodone-acetaminophen] 1 TABLET tablet 1 tab PO Q6H PRN PRN (Reason: Pain) 3 Days Qty: 12 RF: 0 No Action multivitamin Tablet 1 tab PO DAILY RF: 0 acetaminophen 160 mg Tablet 325 mg PO Q4H PRN (Reason: Pain) RF: 0 Primary Care Provider: Robin Tiwari Referrals: Robin Tiwari MD [Primary Care Provider] - 3-5 Days Jagdish Ward MD [STAFF PHYSICIAN] - 3-5 Days Disposition Disposition: Home, Self Care
[2021-10-05 04:51] LABS: Absolute Lymphocyte Count 3.44 X10^3/uL (0.83-4.51); Absolute Neutrophil Count 8.2 X10^3/uL (2.0-7.7); Basophil# 0.06 X10^3/uL; Basophil% 0.5 % (0-1); Eosinophil# 0.21 X10^3/uL; Eosinophils% 1.6 % (0-5); Hematocrit 44.6 % (40-54); Hemoglobin 15.1 g/dL (13.0-16.5); Lymphocyte # 3.44 X10^3/ul (0.83-4.51); Lymphocyte % 26.1 % (19-41); Mean Corp Hgb Conc 33.9 g/dL (32-36); Mean Corpuscular Hgb 30.1 pg (27.0-32.0); Mean Platelet Vol. 12.5 fl (6.2-12.0); Monocyte% 9.1 % (0-10); NRBC Flagged by Analyzer 0 % (0-5); Neutrophil # 8.23 X10^3/uL (2.7-7.7); Neutrophil % 62.4 % (47-70); Platelet Count 231 K/mm3 (150-450); RBC Distribution Width CV 13.2 % (11.6-14.6); RBC Distribution Width SD 42.8 fl (35.1-43.9); Red Blood Count 5.01 M/mm3 (4.6-6.2); White Blood Count 13.2 K/mm3 (4.4-11.0)
[2021-10-05] MEDS: Ondansetron 4 MG/2 ML Vial IV (04:54)
[2021-10-05] MEDS: 0.9% Normal Saline 1,000 ML 1000 ML IV (04:54)
[2021-10-05] MEDS: Morphine 4 MG/ML Syringe IV (04:54)
[2021-10-05 05:15] LABS: ALB/GLOB Ratio 1.1 RATIO (0.9-2.4); AST(SGOT) 20 U/L (15-37); Alanine Aminotransfer ALT/SGPT 42 U/L (16-61); Albumin, Serum 3.9 g/dL (3.2-5.0); Alkaline Phosphatase 70 U/L (45-117); Anion Gap 6 (5-15); BUN 18 mg/dL (7-18); BUN/Creat Ratio 16.8 RATIO (10-20); Calcium,Total 9.2 mg/dL (8.5-10.1); Chloride 107 mmol/L (98-107); Creatinine, Serum 1.07 mg/dL (0.70-1.30); EST Glomerular Filtration Rate 84 mL/min (>60); Est Glom Filt Rate - Afr Amer 102 mL/min (>60); Globulin 3.6 g/dL (2.2-4.2); Glucose 177 mg/dL (74-106); Potassium 3.8 mmol/L (3.5-5.1); Protein, Total 7.5 g/dL (6.4-8.2); Sodium Level 140 mmol/L (136-145)
[2021-10-05] MEDS: HYDROmorphone 1 MG/ML Syringe 0.5 MG IV (05:39)
[2021-10-05 06:22] LABS: Squamous Epithelial Cells - UA 0 SEEN /hpf (0-5)
[2021-10-05 06:42] LABS: Color, Urine Yellow (Yellow); Glucose, Dipstick Normal (Normal); Ketone-Dipstick Negative (Negative); Leukocyte Esterase-Dipstick Negative /ul (Negative); Nitrite-Dipstick Negative (Negative); Occult Blood-Urine 250 /ul (Negative); Protein-Dipstick 30 mg/dl (Negative); Urine Bilirubin Dipstick Negative (Negative); Urine Clarity Sl. Cloudy (Clear); Urine Urobilinogen Normal (Normal)
[2021-10-05 06:49] LABS: Bacteria RARE /hpf (None Seen); Mucous, Urine RARE /hpf (<or=2+); Red Blood Cells-Urine 50-100 SEEN /hpf (0-5); White Blood Cells 0 SEEN /hpf (0-5)
[2021-10-05 07:10] VITALS: BP 134/86; PULSE 80; RESP 16; O2SAT 97
== END 2021-10-05 07:10 | disposition home or self-care (01) ==
PROVIDERS: Emergency Provider Emergency Medicine; PCP Family Medicine
DX: N20.1 Calculus of ureter (principal); Z87.442 Personal history of urinary calculi
CPT/HCPCS: 74176; 80053; 81001; 85025; 96374; 96375; 99282; J7030; J2405

== ENCOUNTER → 2021-10-23 11:14 | Outpatient (CLI) | payer OTHER, SELFPAY ==
--- NOTE | 2021-10-23 11:24 | RAD_ITS ---
STUDY: X-RAY - ABDOMEN/PELVIS REASON FOR EXAM: Male, 35 years old. CALCULUS OF URETER TECHNIQUE: KUB COMPARISON: None. FINDINGS: Normal visualized lung bases. There is an unremarkable bowel gas pattern. There is no demonstrated free abdominal air. The visualized liver, spleen and kidneys are grossly normal in size and morphology. There are tiny calcifications in the pelvis on the left most of which represents phleboliths however distal left ureteral calculus cannot be excluded Surgical clips are seen within the left lower abdomen and pelvis. Lumbar spine demonstrates mild levoscoliosis or splinting. CT would be helpful for further evaluation if clinically warranted RAD/Abdomen Single View IMPRESSION: Nonspecific abdomen. Distal left ureteral calculus not excluded Electronically Signed: Osmin Neil MD at 17:10 EST , Service support ,
== END ==
PROVIDERS: PCP Family Medicine; Referring Provider Urology; Visit Provider Urology
DX: N20.0 Calculus of kidney (principal)
CPT/HCPCS: 74018

== ENCOUNTER → 2022-02-28 | Outpatient (CLI) | payer OTHER, SELFPAY | END | disposition home or self-care (01) | LOC: LABSPEC 14:57 | PROVIDERS: PCP Family Medicine; Visit Provider Family Medicine | DX: U07.1 COVID-19 (principal) | CPT/HCPCS: 87635; U0003; U0005 ==

== ENCOUNTER 2024-06-22 14:58 | Emergency (ER) | payer OTHER, SELFPAY ==
[2024-06-22 14:59] VITALS: BP 155/108; PULSE 124; RESP 20; TEMP 35.4; O2SAT 97; BMI 29.7
--- NOTE | 2024-06-22 16:11 | EDS_ITS ---
HPI History of Present Illness Chief Complaint: Eye Problem Informant: patient Onset/Context/Timing Location: Left Eye Onset: Today Context: Sudden Onset Timing: Continuous Worsened by: Nothing Relieved by: Nothing Associated Symptoms Associated Symptoms - Eyes: Foreign body sensation; Negative for Burning, Crusting, Drainage, Eyelid swelling, Itching, Matting, Pain, Photophobia or Redness History of injury: Yes and Foreign body Visual correction: None Narrative Narrative: Patient presents with foreign body sensation to his left eye that occurred today. Patient states he was using a saws-all to cut a cast iron pipe. Patient states he was wearing safety glasses and a respirator. Patient was not grinding the cast iron pipe. Patient states that he was able to get another foreign body out of his left eye but there is still a foreign body left in his left eye. Patient states he can see it and it is medial to the cornea. Patient denies any visual changes. Patient admits to some redness to his left eye. Patient denies any discharge or drainage. [facility] Medical History Kidney stone Non-smoker Seasonal allergies Black tarry stools Dark stools Ventral incisional hernia without obstruction or gangrene Change in bowel habit Anxiety Constipation Umbilical hernia Abdominal pain Home Medications ?Medication ?Instructions ?Recorded ?Last Taken ?Type acetaminophen 160 mg tablet 325 mg PO Q4H PRN Pain 07/18/21 Unknown History multivitamin 1 tab PO DAILY supplement 07/18/21 Unknown History oxycodone-acetaminophen 5 mg-325 1 tab PO Q6H PRN PRN Pain 3 days 10/05/21 Unknown Rx mg tablet #12 TABLETS Allergy/AdvReac Type Severity Reaction Status Date / Time No Known Allergies Allergy Verified 06/22/24 15:02 Family History Mother No problems noted. Surgical History Hx of wisdom tooth extraction History of ventral hernia repair (12/21/20) Hx of left inguinal hernia repair (~2006) Hx of right inguinal hernia repair (~2001) Social History Smoking Status: Never smoker alcohol intake: never substance use type: does not use caffeine: Yes what type of physical activity do you participate in: none frequency: does not exercise ROS ROS ED Constitutional Constitutional ED: Denies chills or fever(s) Eyes Eyes: Denies blurry vision or change in vision ENT ENT ED: Denies rhinorrhea or sore throat Cardiovascular Cardiovascular: Denies chest pain or palpitations Respiratory/Chest Respiratory/Chest: Denies cough or dyspnea Gastrointestinal Gastrointestinal: Denies nausea or vomiting Genitourinary Genitourinary ED: Denies dysuria or hematuria Musculoskeletal Musculoskeletal: Denies back pain or neck pain Integumentary Denies abscess or rash Neurologic Neurologic: Denies headache(s) or weakness Allergic/Immunologic Allergic/Immunologic ED: Denies mouth swelling or urticaria EXAM Physical Exam Const Vital Signs: 06/22/24 14:59 Temperature 95.8 F L Temperature Source Temporal Pulse Rate 124 H Respiratory Rate 20 H Blood Pressure 155/108 H Blood Pressure Mean 123 Pulse Ox 97 Positive well nourished and well developed General Appearance ED: well developed and NAD HEENT atraumatic Eyes Eyes Narrative: Pupils are equal, round, and reactive to light bilaterally. Extraocular muscles are intact. Conjunctiva with injected on the left. There is a foreign body noted just medial to the cornea on the left sclera. Anterior chamber was clear. There is no hyphema noted. Neck supple and no JVD Neuro oriented x3, CN's II-XII intact bilaterally, moves all extremities and no sensory deficits noted Sensorium / Orientation: alert Motor Exam: strength 5/5 throughout MDM MDM MDM Narrative Medical decision making narrative: Tetracaine and fluorescein dye was applied. There are no corneal abrasions noted. The foreign body was removed with a moistened Q-tip. Patient tolerated the procedure well. Patient was given erythromycin ophthalmic ointment. Patient was instructed to apply this to his left eye 4 times a day for the next 24 hours. Patient was instructed to follow-up with his primary care physician in 3 to 5 days. Patient was instructed return if worse in any way. Patient understood and was agreeable with the plan. All questions were answered. Discharge Plan Triage Chief Complaint: Eye Problem ED Provider: Thomas Bautista Dx/Rx/DC Orders Clinical Impression: Foreign body in conjunctival sac, left eye, initial encounter Instructions: ED Conjunctival Foreign Body, Resolved Prescriptions: No Action multivitamin Tablet 1 tab PO DAILY acetaminophen 160 mg Tablet 325 mg PO Q4H PRN (Reason: Pain) oxycodone-acetaminophen [oxycodone-acetaminophen] 1 TABLET tablet 1 tab PO Q6H PRN PRN (Reason: Pain) 3 Days Qty: 12 0RF Primary Care Provider: Luis Tiwari Referrals: Luis Tiwari MD [Primary Care Provider] - 3-5 Days Print Language: Kazakh Disposition Disposition: Home, Self Care
[2024-06-22] MEDS: Tetracaine 0.5% Ophthalmic Bottle 1 DRP OPHTHALMIC (16:30)
[2024-06-22] MEDS: Fluorescein 1 MG STRIP 1 STRIP OPHTHALMIC (16:31)
[2024-06-22 16:51] VITALS: BP 150/98; PULSE 88; RESP 19; O2SAT 98
[2024-06-22] MEDS: Erythromycin Base 1 OPTH.TUBE 1 APPLIC LEFT EYE (17:20)
== END 2024-06-22 17:22 | disposition home or self-care (01) ==
PROVIDERS: Emergency Provider Emergency Medicine; PCP Family Medicine; Visit Provider Emergency Medicine
DX: T15.12XA Foreign body in conjunctival sac, left eye, initial encounter (principal); X58.XXXA Exposure to other specified factors, initial encounter
CPT/HCPCS: 99282

== ENCOUNTER → 2025-10-27 | Outpatient (CLI) | payer OTHER, SELFPAY ==
[2025-10-27 11:27] LABS: AST(SGOT) 23 U/L (<=37); Alanine Aminotransfer ALT/SGPT 31 U/L (<=46); Albumin, Serum 4.4 g/dL (3.5-5.0); Alkaline Phosphatase 74 U/L (40-129); Anion Gap 11 (5-15); BUN 12 mg/dL (4-19); BUN/Creat Ratio 13.7 RATIO (10-20); Calcium,Total 9.6 mg/dL (7.6-11.0); Carbon Dioxide 24.5 mmol/L (21.0-32.0); Chloride 106 mmol/L (98-108); Globulin 2.5 g/dL (2.2-4.2); Glucose 109 mg/dL (70-99); PSA,Total - Annual Screen 0.98 ng/mL (0.02-4.00); Potassium 4.1 mmol/L (3.3-5.1)
== END | disposition home or self-care (01) ==
LOC: MFPLAB 09:15
PROVIDERS: PCP Family Medicine; Visit Provider Family Medicine
DX: R10.13 Epigastric pain (principal); Z80.42 Family history of malignant neoplasm of prostate
CPT/HCPCS: 36415; 80053; 84153; G0103